=== PATIENT | male | born 1945 | race Caucasian/White ===

== ENCOUNTER 2016-11-03 14:11 | Emergency (ER) | payer OTHER ==
[~2016-11-03] VITALS: Ht 180.3 cm; Wt 83.9 kg
[2016-11-03 14:36] VITALS: BP_SYST 133
[2016-11-03] MEDS ORDERED: KETOROLAC TROMETHAMINE 60 MG/2 ML VIAL IM ONE (16:30)
[2016-11-03 17:25] VITALS: BP_SYST 130
== END 2016-11-03 17:25 | disposition home or self-care (01) ==
LOC: SED 14:11
DX: S22.32XA Fracture of one rib, left side, initial encounter for closed fracture (principal); F17.200 Nicotine dependence, unspecified, uncomplicated; Z71.6 Tobacco abuse counseling; W20.8XXA Other cause of strike by thrown, projected or falling object, initial encounter; Y93.89 Activity, other specified; Y92.814 Boat as the place of occurrence of the external cause; Y99.8 Other external cause status
CPT/HCPCS: 71010; 71100; 96372; 99284; J1885

== ENCOUNTER 2016-11-08 13:53 | Emergency (ER) | payer OTHER ==
[~2016-11-08] VITALS: Ht 182.9 cm; Wt 83.9 kg
[2016-11-08 14:23] VITALS: BP 159/82; PULSE 79; RESP 16; TEMP 97.7; O2SAT 95
--- NOTE | 2016-11-08 15:19 | NUR ---
Patient to [facility] for evaluation. Report given to Ashly PARKER.
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
--- NOTE | 2016-11-08 15:26 | NUR ---
ER JULI Joiner at bedside for evaluation
[2016-11-08 15:45] VITALS: BP 132/71; PULSE 75; RESP 16; TEMP 97.7; O2SAT 97
--- NOTE | 2016-11-08 15:45 | NUR ---
Patient given written and verbal discharge instructions and verbalizes understanding. ER HEMATOLOGY SPECIALIST Marisel discussed with patient the results and treatment provided. Patient in stable condition. ID arm band removed. Rx of motrin & norco given. Patient educated on pain management and to follow up with PMD. Pain Scale 0/10. Opportunity for questions provided and answered.
== END 2016-11-08 15:45 | disposition home or self-care (01) ==
LOC: SED 13:53
DX: S22.42XG Multiple fractures of ribs, left side, subsequent encounter for fracture with delayed healing (principal); F17.200 Nicotine dependence, unspecified, uncomplicated; W19.XXXD Unspecified fall, subsequent encounter
CPT/HCPCS: 99283

== ENCOUNTER 2018-03-29 16:50 | Outpatient (CLI) | payer OTHER | END 2018-03-29 20:52 | disposition home or self-care (01) | LOC: SRD 16:50 | PROVIDERS: ATTEND Family Medicine | DX: M41.86 Other forms of scoliosis, lumbar region (principal); M47.896 Other spondylosis, lumbar region; I67.2 Cerebral atherosclerosis; F17.210 Nicotine dependence, cigarettes, uncomplicated | CPT/HCPCS: 72110 ==

== ENCOUNTER 2019-03-24 11:35 | Outpatient (CLI) | payer OTHER | END 2019-03-24 21:04 | disposition home or self-care (01) | LOC: SRD 11:35 | PROVIDERS: ATTEND Family Medicine | DX: Z01.818 Encounter for other preprocedural examination (principal); K44.9 Diaphragmatic hernia without obstruction or gangrene; R05 Cough | CPT/HCPCS: 71046-TC ==

== ENCOUNTER 2021-03-26 10:52 | Emergency (ER) | payer OTHER ==
[~2021-03-26] VITALS: Ht 182.9 cm; Wt 85.3 kg
[2021-03-26 11:19] VITALS: BP_SYST 121
[2021-03-26 11:42] LABS: BASOPHILS # (AUTO) 0.1 K/uL (0.0-0.2); BASOPHILS % (AUTO) 1.4 % (0.0-2.0); EOSINOPHILS % (AUTO) 0.4 % (0.0-4.0); HEMATOCRIT 42.6 % (36-54); HEMOGLOBIN 14.4 g/dL (14.0-18.0); LYMPHOCYTES # (AUTO) 0.9 K/uL (1.0-5.5); LYMPHOCYTES % (AUTO) 14.7 % (20.5-51.5); MEAN CORPUSCULAR HEMOGLOBIN 31 pg (27-31); MEAN CORPUSCULAR HGB CONC 34 % (32-36); MEAN CORPUSCULAR VOLUME 93 fL (79.0-98.0); MONOCYTES # (AUTO) 0.4 K/uL (0.0-1.0); MONOCYTES % (AUTO) 5.9 % (1.7-9.3); NEUTROPHILS # (AUTO) 4.8 K/uL (1.8-7.7); NEUTROPHILS % (AUTO) 77.6 % (40.0-70.0); PLATELET COUNT (AUTO) 193 K/uL (130-430); RED BLOOD CELL COUNT(AUTO) 4.59 MIL/uL (4.2-6.2); RED CELL DISTRIBUTION WIDTH 14.5 % (9.0-15.0); WHITE BLOOD COUNT (AUTO) 6.1 K/uL (4.8-10.8)
[2021-03-26 11:58] LABS: ANION GAP 8 (5-15); CALCIUM 9.4 mg/dL (8.4-11.0); CHLORIDE 102 mmol/L (98-107); CREATININE 0.88 mg/dL (0.55-1.30); GLUCOSE 100 mg/dL (70-99); POTASSIUM 4.6 mmol/L (3.5-5.1); SODIUM SERUM 138 mmol/L (136-145); UREA NITROGEN, BLOOD 13 mg/dL (8-21)
[2021-03-26 12:09] LABS: ALANINE AMINOTRANSFERASE 28 U/L (12-78); ALBUMIN 3.8 g/dL (3.4-4.8); ASPARTATE AMINOTRANSFERASE 16 U/L (10-37); LIPASE 119 U/L (73-393)
--- NOTE | 2021-03-26 12:22 | NUR ---
Patient to ER bed 03 to gown for evaluation. Side rails up.
--- NOTE | 2021-03-26 12:25 | NUR ---
Pt came into ER with complaint of sharp suprapubic pain 6/10 Xtoday. Pt reports yesterday he was having generalized lower abdominal pain across his whole abdomen sharp 6/10. Pt AAOX4 speaking full sentences. Resting in gurney attached to monitor VSS no distress noted at this time. Pt denies pain with urination. Last BM this morning.
--- NOTE | 2021-03-26 12:35 | NUR ---
Pt ambulated to restroom independently for urine specimen. Gait steady and straight.
--- NOTE | 2021-03-26 12:38 | NUR ---
Urine collected and sent to lab.
[2021-03-26 12:40] LABS: BILIRUBIN,URINE NEGATIVE (NEGATIVE); BLOOD, URINE NEGATIVE (NEGATIVE); GLUCOSE,URINE NEGATIVE (NEGATIVE); KETONES,URINE TRACE (NEGATIVE); LEUKOCYTE ESTERASE ,URINE NEGATIVE (NEGATIVE); NITRITE, URINE NEGATIVE (NEGATIVE); PH,URINE 6.5 (5.0-8.0); PROTEIN URINE NEGATIVE (NEGATIVE); UROBILINOGEN,URINE 0.2 (0.2-1.0)
[2021-03-26 12:41] LABS: CLARITY/URINE CLEAR (CLEAR); COLOR,URINE AMBER (YELLOW)
--- NOTE | 2021-03-26 13:01 | NUR ---
ER at bedside examining patient.
[2021-03-26 13:32] VITALS: BP_SYST 121
--- NOTE | 2021-03-26 13:33 | NUR ---
Patient given written and verbal discharge instructions and verbalizes understanding. ER MD discussed with patient the results and treatment provided. Patient in stable condition. ID arm band removed. Patient educated on pain management and to follow up with PMD. Pain Scale 0/10. Opportunity for questions provided and answered. Medication side effect fact sheet provided.
== END 2021-03-26 13:33 | disposition home or self-care (01) ==
LOC: SED 10:52
DX: R10.30 Lower abdominal pain, unspecified (principal); F17.290 Nicotine dependence, other tobacco product, uncomplicated
CPT/HCPCS: 36415; 76376; 80053; 81003; 83690; 85025; 99284